=== PATIENT | male | born 1945 | race Caucasian/White ===

== ENCOUNTER 2016-12-25 11:21 | Inpatient (IN) ==
[2016-12-25] MEDS ORDERED: DIPRIVAN 1% 1,000 MG/100 ML BOTTLE ONE (11:26)
[2016-12-25] MEDS ORDERED: NS 2,000 ML ONE (11:30)
[2016-12-25] MEDS: DIPRIVAN 1% 1,000 MG/100 ML BOTTLE IV SCH ×5 (11:30→16:25)
[2016-12-25] MEDS ORDERED: NS 1,000 ML IV ONE ×2 (11:31→12:19)
[2016-12-25 11:49] LABS: MANUAL DIFF NEEDED? NO
[2016-12-25 11:49] LABS: URINE MICRO REVIEW NEEDED? NO; URINE SOURCE CATH
[2016-12-25 11:53] LABS: BASO% 0.9 % (0.0-0.8); EOS# 0.03 X1000 (0.0-0.7); EOS% 0.5 % (0.0-10.0); HEMATOCRIT 39.4 % (42.0-52.0); IMM GRAN# 0.03 X1000 (0.0-0.04); IMM GRAN% 0.5 % (0.0-0.5); LYMPH# 1.44 X1000 (1.2-3.4); LYMPH% 21.7 % (20.5-51.1); MCH 29.5 PG (27-31); MCHC 30.5 g/dL (33-37); MCV 96.8 FL (81-99); MONO# 0.78 X1000 (0.11-0.59); MONO% 11.7 % (1.7-9.3); MPV 9.3 FL (7.4-10.4); NEUT% 64.7 % (42.2-75.2); PLT 289 X1000 (130-400); RBC 4.07 XMIL (4.7-6.1)
[2016-12-25 11:54] LABS: BILIRUBIN URINE NEGATIVE (NEGATIVE); BLOOD URINE NEGATIVE (NEGATIVE); COLOR YELLOW; GLUCOSE URINE NEGATIVE (NEGATIVE); LEUKOCYTES URINE NEGATIVE (NEGATIVE); NITRITE URINE NEGATIVE (NEGATIVE); PROTEIN URINE TRACE mg/dL (NEGATIVE); SP GRAVITY URINE 1.012; TURBIDITY URINE CLEAR (CLEAR); UROBILINOGEN URINE NORMAL (NORMAL)
[2016-12-25 11:56] LABS: UR EPITHELIAL CELLS <10 /HPF (<10); URINE BACTERIA NEGATIVE /HPF; URINE RBC <10 /HPF (<10); URINE WBC <10 /HPF (<10)
--- NOTE | 2016-12-25 12:05 | Diag Imaging Result Doc PS360 ---
EXAM: CHEST-PORTABLE HISTORY: post intubation TECHNIQUE: Portable supine COMPARISON: 06/04/2016 FINDINGS: There is an endotracheal tube with tip located approximately 4 cm above the sasha. There are increased interstitial markings in the upper and mid left lung. These are actually slightly less pronounced than on the prior study. There is pleural thickening on the left. There is a small amount of fibrosis in the right apex. Old injury to the distal right clavicle. The heart is not enlarged. No pleural effusions identified. IMPRESSION: Endotracheal tube in good position. Persistent masslike area in the left upper lobe. Electronically signed by Wyatt Horn 12/25/2016 12:03 PM
[2016-12-25 12:21] LABS: ALLEN TEST YES; BE 3.4 mmoll (-3.0-3.0); BLOOD TYPE ARTERIAL; DRAW SITE R RADIAL; METHB 1.1 % (0.0-1.5); O2(CT) 15.2 mL/dL (15.0-23.0); PO2(98.6) 330 mmHg (60-100); SAMPLE BLOOD; SAO2 99.3 % (95.0-100.0); SRATE 15 BPM; THB 10.6 g/dL (11.5-17.4); TVOL 400 mL
[2016-12-25 12:22] LABS: AGAP 8; ALBUMIN 3.6 g/dL (3.5-5.0); ALKALINE PHOSPHATASE 117 U/L (32-122); AMYLASE 49 U/L (20-200); BUN 13 mg/dL (8-22); CALCIUM 8.5 mg/dL (8.8-10.2); CHLORIDE 97 mmol/L (98-107); COSMO 284; GOT 24 U/L (10-34); GPT 19 U/L (10-44); LIPASE 15 U/L (13-60); POTASSIUM 4.4 mmol/L (3.5-5.1); SODIUM 138 mmol/L (136-145); TCO2 33 mmol/L (25-35); TOTAL BILIRUBIN 0.25 mg/dL (0.20-1.00); TOTAL PROTEIN 6.6 g/dL (6.3-8.3)
[2016-12-25 12:23] LABS: MODALITY VENTILATOR; PCO2(98.6) 102 mmHg (35-45); pH(98.6) 7.14 (7.35-7.45)
[2016-12-25] MEDS ORDERED: CALCIUM CHLORIDE SYRINGE IV ONE (12:27)
[2016-12-25] MEDS ORDERED: SODIUM BICARBONATE 8.4% IV ONE (12:27)
[2016-12-25] MEDS ORDERED: LEVOPHED 8 MG in D5 1/2 NS 250 ML IV SCH (12:30)
[2016-12-25] MEDS: LEVOPHED 8 MG in D5 1/2 NS 250 ML IV SCH ×3 (12:45→14:13)
--- NOTE | 2016-12-25 13:00 | PROVIDER DOCUMENTATION ---
This chart was entered by Jennifer Maxwell Scribe, acting as scribe for Vaughn Tineo MD. HPI-Cardiopulmonary Arrest - General Stated Complaint: unresponsive Time Seen by Provider: 12/25/16 11:21 Source: EMS Allergies/Adverse Reactions: Allergies Allergy/AdvReac Type Severity Reaction Status Date / Time morphine Allergy Intermediate SWELLING Verified 05/30/16 09:53 Home Medications: Home Medication List Medication Instructions Recorded Confirmed Last Taken Type LISINOpril [Prinivil] 20 mg PO DAILY 04/18/16 05/30/16 05/29/16 History Trazodone [Desyrel] 50 mg PO QHS 04/18/16 05/30/16 3 Days Ago History Terazosin HCl 2 mg PO QHS 05/30/16 05/30/16 05/28/16 History Albuterol 2.5MG/Ipratrop 0.5MG 3 ml INH RTQ4H PRN neb 06/03/16 Unknown Rx [Duoneb (A & A)] Carvedilol [Coreg] 6.25 mg PO Q12HR #0 tablet 06/03/16 Unknown Rx Ergocalciferol (Vitamin D2) 50,000 unit PO Q7D #0 capsule 06/03/16 Unknown Rx [Vitamin D] Guaifenesin [Robitussin] 10 ml PO Q4H PRN PRN #0 bottle 06/03/16 Unknown Rx Iron Carbonyl/Ascorbic Acid 1 each PO BID #0 tablet 06/03/16 Unknown Rx [Icar-C] Levofloxacin [Levaquin] 750 mg PO DAILY #7 tablet 06/03/16 Unknown Rx Methylprednisolone [Medrol Dosepak] 4 mg PO DIRECTED #1 package 06/03/16 Unknown Rx Multivitamins/Minerals [Centrum 1 each PO BID #0 tablet 06/03/16 Unknown Rx Silver] Oxycodone/APAP 5 mg/325 mg 1 each PO Q4H PRN PRN #0 tablet 06/03/16 Unknown Rx [Percocet-5] Pantoprazole [Protonix] 40 mg PO DAILY@0700 #30 tablet 06/03/16 Unknown Rx Sucralfate [Carafate Liquid] 1 gm PO Q6H #0 udc 06/03/16 Unknown Rx - History of Present Illness-C/P Arrest Initial Comments: Pt is 71 y/o M presents to the ED via EMS for respiratory distress. EMS states on arrival Pt was unresponsive and a respiratory rate of 4 per minute. EMS states Pt is stage 4 lung cancer. Onset: Reason for Code Blue?: respiratory arrest Witnessed arrest?: No Bystander CPR?: No CPR initiated before doctor arrival?: No Down-time before ACLS? (in minutes, if known): 30 Initial Findings: unresponsive, decreased respirations (4 per minute) Treatment initiated prior to doctor arrival?: Initiated other (respirations given via ambu bag) Similar Symptoms Previously?: No Recently seen or treated by another doctor?: No - Pre-hospital Treatment EMS Initial Findings:: unresponsive, decreased respirations (4 per minute) Pre-hospital Treatment: Initiated other (respirations given via ambu bag) Review of Systems - Adult - REVIEW OF SYSTEMS - ADULT ROS:: unobtainable per condition Constitutional: reports: no symptoms reported Eyes: reports: no symptoms reported Ears, Nose, Mouth & Throat: reports: no symptoms reported Cardiovascular: reports: no symptoms reported Respiratory: reports: other (decreased respirations (4 per min)). denies: cough , shortness of breath, wheezing Gastrointestinal: reports: no symptoms reported Genitourinary: reports: no symptoms reported Musculoskeletal: reports: no symptoms reported Integumentary: reports: no symptoms reported Neurological: reports: no symptoms reported Psychiatric: reports: no symptoms reported Endocrine: reports: no symptoms reported Hematologic/Lymphatic: reports: no symptoms reported Allergic/Immunologic: reports: no symptoms reported All Other Systems: Reviewed and Negative Past History - Adult - PAST MEDICAL HISTORY-ADULT Review of Records: reports: Nursing Assessment Review, Medications Reviewed, Social history reviewed & non-contributory. Major Childhood Illnesses: reports: denies history Cardiovascular: reports: CAD, HTN Respiratory: reports: COPD (emphysema ), cancer (SCC for the last year--has had no treatment for this) Gastrointestinal: reports: denies history Obstetrical/Gynecological: reports: denies history Genitourinary: reports: denies history Musculoskeletal: reports: arthritis Neurological: reports: dementia, Seizures/Epilepsy Endocrine/Immune: reports: denies history Other Conditions: reports: denies history - PRIOR SURGERIES/PROCEDURES Surgical/Procedure History: reports: orthopedic (extremity), back/neck - IMMUNIZATION STATUS Childhood Immunizations: See Nurse Assessment Flu Vaccine: See Nurse Assessment - FAMILY HISTORY Family History: reviewed, not pertinent - SOCIAL HISTORY Smoking: quit less than 1 year, cigarettes Substance Use: denies Living Situation: family Physical Exam-General - PHYSICAL EXAM-ADULT Initial Vital Signs Reviewed: Yes - CONSTITUTIONAL General Appearance: moderate distress, thin, other (unresponsive) - EYES Eyes: PERRL/EOMI, pink conjunctivae - HEAD, EARS, NOSE, MOUTH & THROAT HENMT: normal ENT inspection - NECK Neck: normal inspection - RESPIRATORY Respiratory: chest non-tender, rhonchi (bilateral), decreased rate (4 per minute ) - CARDIOVASCULAR Cardiovascular: no edema, no gallop, no JVD, no murmur, tachycardia - GASTROINTESTINAL (ABDOMEN) Abdominal Exam: normal bowel sounds, soft - LYMPHATIC Lymphatic: no adenopathy - MUSCULOSKELETAL Back Exam: normal inspection Extremity: normal inspection - SKIN Integumentary: normal color, normal turgor, warm/dry - NEUROLOGIC Neurologic: other (unresponsive) - PSYCHIATRIC Psych/Mental Status: other (unresponsive) Progress - PLAN OF CARE/RESULTS Progress/Plan/Lab Results: Vital Signs - 8 hr 12/25/16 11:26 Temperature 97.6 F Pulse Rate 101 H Respiratory Rate 22 Blood Pressure 126/67 O2 Sat by Pulse Oximetry 96 Laboratory Results - last 24 hr 12/25/16 12/25/16 12/25/16 11:14 11:14 11:14 WBC 6.64 RBC 4.07 L Hgb 12.0 L Hct 39.4 L MCV 96.8 MCH 29.5 MCHC 30.5 L RDW Std Deviation 15.5 H Plt Count 289 MPV 9.3 Immature Gran % (Auto) 0.5 Neut % (Auto) 64.7 Lymph % (Auto) 21.7 Sutton % (Auto) 11.7 H Eos % (Auto) 0.5 Baso % (Auto) 0.9 H Immature Gran # (Auto) 0.03 Neut # (Auto) 4.30 Lymph # (Auto) 1.44 Sutton # (Auto) 0.78 H Eos # (Auto) 0.03 Baso # (Auto) 0.06 Specimen Type Sample Site pH pCO2 pO2 HCO3 Base Excess Oxyhemoglobin ABG O2 Sat (Calculated) ABG O2 Saturation ABG Carboxyhemoglobin ABG Methemoglobin Clayton Test A-a O2 Difference Total Hemoglobin Lactate Blood Gas Modality Vent Mode Spontaneous Rate FiO2 % Tidal Volume PEEP Sodium 138 Potassium 4.4 Chloride 97 L Carbon Dioxide 33 Anion Gap 8 BUN 13 Creatinine 0.5 L Estimated GFR/1.73 m2 > 60 BUN/Creatinine Ratio 26 Glucose 241 H Calculated Osmolality 284 Calcium 8.5 L Total Bilirubin 0.25 AST 24 ALT 19 Alkaline Phosphatase 117 Troponin T < 0.010 Total Protein 6.6 Albumin 3.6 Globulin 3.0 Albumin/Globulin Ratio 1.2 Amylase 49 Lipase 15 Plasma Lactate Urine Source Urine Color Urine Turbidity Urine pH Ur Specific Verona Urine Protein Ur Glucose (Stick) Ur Ketones (Stick) Urine Blood Urine Nitrite Urine Bilirubin Urobilinogen Dipstick Urine Leukocytes Urine WBC (Auto) Urine RBC (Auto) U Epithel Cells (Auto) Urine Bacteria (Auto) 12/25/16 12/25/16 12/25/16 11:14 11:20 12:10 WBC RBC Hgb Hct MCV MCH MCHC RDW Std Deviation Plt Count MPV Immature Gran % (Auto) Neut % (Auto) Lymph % (Auto) Sutton % (Auto) Eos % (Auto) Baso % (Auto) Immature Gran # (Auto) Neut # (Auto) Lymph # (Auto) Sutton # (Auto) Eos # (Auto) Baso # (Auto) Specimen Type ARTERIAL Sample Site R RADIAL pH 7.14 L* pCO2 102 H* pO2 330 H HCO3 27.6 H Base Excess 3.4 H Oxyhemoglobin 96.4 ABG O2 Sat (Calculated) 15.2 ABG O2 Saturation 99.3 ABG Carboxyhemoglobin 1.80 ABG Methemoglobin 1.1 Clayton Test YES A-a O2 Difference 113.0 Total Hemoglobin 10.6 L Lactate 0.50 Blood Gas Modality VENTILATOR Vent Mode A/C Spontaneous Rate 15 FiO2 % 80.0 Tidal Volume 400 PEEP 5.0 Sodium Potassium Chloride Carbon Dioxide Anion Gap BUN Creatinine Estimated GFR/1.73 m2 BUN/Creatinine Ratio Glucose Calculated Osmolality Calcium Total Bilirubin AST ALT Alkaline Phosphatase Troponin T Total Protein Albumin Globulin Albumin/Globulin Ratio Amylase Lipase Plasma Lactate 2.1 Urine Source CATH Urine Color YELLOW Urine Turbidity CLEAR Urine pH 6.0 Ur Specific [place] 1.012 Urine Protein TRACE A Ur Glucose (Stick) NEGATIVE Ur Ketones (Stick) NEGATIVE Urine Blood NEGATIVE Urine Nitrite NEGATIVE Urine Bilirubin NEGATIVE Urobilinogen Dipstick NORMAL Urine Leukocytes NEGATIVE Urine WBC (Auto) <10 Urine RBC (Auto) <10 U Epithel Cells (Auto) <10 Urine Bacteria (Auto) NEGATIVE Orders Category Date Time Status CHEST-PORTABLE [RAD] Stat Exams 12/25/16 11:27 Completed ABG [RESP] Routine Lab 12/25/16 12:10 Completed AMYLASE [CHEM] Stat Lab 12/25/16 11:14 Completed BLOOD CULTURE [BLDCUL] Stat Lab 12/25/16 12:10 Received CBC WITH ELECTRONIC DIFF [HEME] Stat Lab 12/25/16 11:14 Completed COMPREHENSIVE METABOLIC PANEL [CHEM] Stat Lab 12/25/16 11:14 Completed LACTATE, PLASMA [CHEM] Stat Lab 12/25/16 11:14 Completed LIPASE [CHEM] Stat Lab 12/25/16 11:14 Completed TROPONIN T Stat Lab 12/25/16 11:14 Completed URINALYSIS [URINALYSIS] Stat Lab 12/25/16 11:20 Completed 0.9% Sodium Chloride Inj [Ns] 1,000 ml Med 12/25/16 11:30 Discontinued .ROUTE As Directed 0.9% Sodium Chloride Inj [Ns] 1,000 ml Med 12/25/16 11:31 Discontinued IV 999 mls/hr 0.9% Sodium Chloride Inj [Ns] 1,000 ml Med 12/25/16 12:19 Active IV 999 mls/hr Calcium Chloride Syringe Med 12/25/16 12:27 Discontinued 1 gm IV NOW ONE Dextrose 5%-0.45% NaCl Inj [D5 1/2 Ns] 250 ml Med 12/25/16 12:30 Active Norepinephrine [Levophed] 8 mg IV As Directed Dextrose 5%-0.45% NaCl Inj [D5 1/2 Ns] 250 ml Med 12/25/16 12:30 Ordered Norepinephrine [Levophed] 8 mg IV As Directed Propofol [Diprivan 1%] Med 12/25/16 11:26 Discontinued 1,000 mg in 100 ml .ROUTE As Directed Propofol [Diprivan 1%] Med 12/25/16 11:48 Active 1,000 mg in 100 ml IV As Directed Sodium Bicarbonate 8.4% Med 12/25/16 12:27 Discontinued 50 meq IV NOW ONE EKG [EKG] Stat Ther 12/25/16 11:27 Ordered Result Diagrams: 12/25/16 11:14 12/25/16 11:14 - XRAY 1 XRAY Study: Chest Impression: See EMR Report (ET tube in place) - CONSULTS/PCP/HOSPITALIST Notification #1 *Consult/PCP/Hospitalist*: Dr Cueto Time Discussed: 12:55 Consult Disposition: Admit Procedures - INTUBATION Time of Intubation: 11:16 Mallampati Class: 4 Intubation Method: orotracheal Equipment: Glidescope Tube Size (cm): 7.5 Pretreated with 100% Oxygen?: Yes Breath Sounds after Intubation: equal ETT Primary Tube Confirmation: Capnometry CO2 Change, Direct Visualization, Chest Rise and Fall, Tube placement verified on XRAY Intubation Complications: no complications Vent Settings: See Respiratory Therapy Notes Departure - Departure Date of Disposition Decision: 12/25/16 Time of Disposition Decision: 12:55 DIAGNOSIS: Respiratory acidosis Respiratory failure Qualifiers: Chronicity: unspecified Respiratory failure complication: hypercapnia Qualified Code(s): J96.92 - Respiratory failure, unspecified with hypercapnia DIAGNOSIS: (Ruled Out): Respiratory failure after trauma Disposition: ADMITTED INPATIENT 09 Certified Medical Emergency: Emergent Condition: Serious Referrals and Follow-Ups: None,PCP [Primary Care Provider] - - Critical Care Note This patient required my direct & personal management of CC.: Yes Total Time (mins): 60 Critical Care Statement: This patient required my direct personal management to treat or rule out processes, the absence of which, could potentiallly result in sudden, clinically significant life or limb threatening deterioration. Comments: A 71 y/o M with stage 3 lung cancer full code presented with respiratory failure , no gag reflex, pulse normal GCS less than 8after intubation, pt was sedated and started on levodrip for BP maintanance, labs shows acidosis will admit to ICU for further evaluation and management This chart was documented by the indicated scribe, (Jennifer Maxwell Scribe) and accurately reflects the services I performed and decisions made by me, Vaughn Tineo MD, as attested by the provider's signature.
[2016-12-25] MEDS ORDERED: VANCOMYCIN IV PER PHARMACY MISC SCH (13:45)
[2016-12-25] MEDS ORDERED: ATROPINE SYRINGE ONE (13:59)
[2016-12-25] MEDS ORDERED: DUONEB (A & A) INH PRN (14:09)
[2016-12-25] MEDS ORDERED: ATROPINE SYRINGE IV ONE (14:09)
[2016-12-25 14:17] LABS: ALLEN TEST YES; BE 6.6 mmoll (-3.0-3.0); BLOOD TYPE ARTERIAL; DRAW SITE R RADIAL; METHB 1.2 % (0.0-1.5); O2(CT) 15.9 mL/dL (15.0-23.0); PO2(98.6) 311 mmHg (60-100); SAMPLE BLOOD; SAO2 99.4 % (95.0-100.0); SRATE 20 BPM; THB 11.1 g/dL (11.5-17.4); TVOL 450 mL; pH(98.6) 7.31 (7.35-7.45)
[2016-12-25 14:22] LABS: MODALITY VENTILATOR; PCO2(98.6) 69 mmHg (35-45)
[2016-12-25 15:07] LABS: HEMOGLOBIN A1C 5.5 % (4.8-6.0)
--- NOTE | 2016-12-25 15:45 | Diag Imaging Result Doc PS360 ---
EXAM: THORAX/ABDOMEN/PELVIS HISTORY: respiratory failure, lung cancer TECHNIQUE: CT chest with contrast. CT abdomen and pelvis with contrast. Dose reduction protocol. COMPARISON: 05/30/2016. FINDINGS: Chest: There is an endotracheal tube in good position. Tiny pleural effusions. The heart is not enlarged. Wedged shaped consolidated area containing multiple calcifications in the upper outer left lung. Interval increase in the size of the mass or adjacent infiltrates compared to the prior exam. There is also fibrosis in the right upper lung. Prominent emphysematous changes. There is bilateral bronchial wall thickening fairly similar to the prior exam. Increased interstitial markings in the lower lungs believed to be fibrosis. No thoracic aortic aneurysm or dissection. Normal opacification of pulmonary arteries. Abdomen and pelvis: The gallbladder is overly distended. No adjacent inflammation or calcified stones. No distinct focal hepatic lesion. There is periportal edema. Spleen is not enlarged. Normal pancreas and adrenal glands. Normal enhancement of the kidneys. There is a nonobstructing right renal stone. No hydronephrosis. Prominent atherosclerosis. No aneurysmal dilatation to the aorta. No bowel obstruction. A Myers catheter has the urinary bladder decompressed. There are surgical clips in the anterior mid abdomen and pelvis. Trace fluid in the abdomen and pelvis. Patient has scoliosis with degenerative spine changes. Interval fracture or development of a destructive lesion in the posterior inferior pubic ramus on the right. IMPRESSION: CHEST: Overall increase in the size of the mass or adjacent infiltrates in the upper left lower. Abdomen and pelvis: Stable CT of the abdomen and pelvis with the exception of a distended gallbladder on the current exam and either a fracture or destructive lesion in the right inferior pubic ramus Electronically signed by Wyatt Horn 12/25/2016 3:42 PM
--- NOTE | 2016-12-25 15:52 | Diag Imaging Result Doc PS360 ---
EXAM: HEAD W/O CONTRAST HISTORY: seizure, ams, intubated TECHNIQUE: Dose reduction protocol. COMPARISON: 05/30/2016 FINDINGS: No parenchymal hemorrhage. No epidural or subdural hematoma. No subarachnoid hemorrhage. No mass identified on this noncontrasted exam. No hydrocephalus. There are chronic microvascular ischemic changes. No sinus opacification although there is mucosal thickening in the frontal, ethmoid, and maxillary sinuses. IMPRESSION: 1.No hemorrhage 2.Chronic microvascular ischemic changes 3.Mucosal thickening in multiple sinuses Electronically signed by Wyatt Horn 12/25/2016 3:49 PM
[2016-12-25] MEDS: DUONEB (A & A) INH SCH (16:01)
[2016-12-25] MEDS: SODIUM CHLORIDE 0.9% INJ SCH (16:36)
[2016-12-25] MEDS: SOLU-MEDROL IV SCH ×2 (16:36→22:33)
[2016-12-25] MEDS: LOVENOX SUBQ SCH (16:36)
[2016-12-25] MEDS: PEPCID IV SCH (16:36)
[2016-12-25] MEDS: NS 1,000 ML IV SCH (16:37)
[2016-12-25] MEDS: ZOSYN 3.375 GM/NS 3.375 GM/50 ML IVPB IV SCH ×2 (16:37→20:06)
[2016-12-25] MEDS: HUMULIN R SUBQ SCH ×2 (16:46→22:25)
--- NOTE | 2016-12-25 16:53 | HISTORY AND PHYSICAL ---
CHIEF COMPLAINT: Altered mental status. HISTORY OF PRESENT ILLNESS: Mr. Dolan is an unfortunate 71-year-old male known to our service, he has a history of left upper lobe lung cancer and is currently followed by Dr. Mehta with Radiation Oncology, and is receiving radiation therapy. Currently patient is intubated and is unable to give any type of history. at the bedside reports that he has not been "feeling well" over the past few days. This morning she witnessed him have what was reported as a seizure-like event. He began shaking and essentially collapsed, at which point 911 was called. The patient was brought to the ER emergently. He was promptly intubated as he was in respiratory failure, breathing 4 times a minute. Initial ABG showed a CO2 of 102, with a pH of 7.14. Chemistry did not show anything acute, CBC was stable. Chest x-ray showed ET tube in good placement with stable left upper lobe mass. The patient's reports he has apparently a history of seizures but is not on any medications and has not been on any for multiple years, his last seizure was reported 2 years ago. During our interview, the patient began to become bradycardic in the 40s and this required atropine. He also shot his blood pressure up to 190 systolic. As such, we are going to order a stat head CT to rule out any increase in intracranial pressure. However the family has requested that he is now a DNR level 2. They do not want any chest compressions or defibrillation. The patient is critically ill with a poor prognosis. He is now going to be admitted to the ICU for further treatment and evaluation. PAST MEDICAL HISTORY: 1. Lung cancer. 2. COPD. 3. Continued nicotine dependence. 4. Questionable seizure disorder. 5. History of TB. 6. Rheumatoid arthritis. 7. Severe protein calorie malnutrition. SURGICAL HISTORY: He has had some type of back surgery as well as stomach surgery. SOCIAL HISTORY: He smokes half a pack to a pack a day of personally rolled cigarettes. He does not drink or use illicit substances. He is and his is at the bedside. REVIEW OF SYSTEMS: Unable to obtain. FAMILY HISTORY: Noncontributory. ALLERGIES: To morphine. HOME MEDICATIONS: Currently being compiled. PHYSICAL EXAMINATION: VITAL SIGNS: Blood pressure is 190/105, heart rate is 52, respiratory rate is 20, O2 saturation 100% on 100% mechanical ventilation. Temperature is 97.6 degrees. GENERAL: This is a frail, chronically ill and disheveled appearing 71-year-old male, lying in hospital bed intubated and sedated. NEUROLOGIC: The patient is sedated on propofol which precludes neurologic examination. HEENT: Head is atraumatic and normocephalic. His pupils are. 1 mm bilaterally, sluggish to light reaction. ET tube is noted. Oral mucosa is dry. Trachea is midline. NECK: There is no cervical lymphadenopathy. CHEST: Coarse throughout with diminished airflow on the left upper lobe. CV: Bradycardic and regular. S1, S2 is noted. There is a 1/6 systolic ejection murmur noted. GI: Soft, nondistended. Bowel sounds are hypoactive. EXTREMITIES: Without edema, clubbing or cyanosis. Pulses palpable but diminished bilaterally. DIAGNOSTIC DATA: Chest x-ray shows ET tube in good position with stable left upper lobe mass. WBC 6.64, hemoglobin 12, hematocrit 39.4, platelet count 289,000. Repeat ABG on 80% mechanical ventilation; pH 7.31, CO2 69, O2 311, bicarb 30.1, lactic acid 0.4. Chemistry: Sodium 138, potassium 4.4, chloride 97, CO2 33, anion gap 8, BUN 13, creatinine 0.5, glucose 241, calcium 8.5. LFTs in normal limits. Troponin negative. Lactate 2.1. Albumin 3.6. WBC 6.64, hemoglobin 12, hematocrit 39.4, platelet count 289,000. UA is negative. ASSESSMENT/PLAN: 1. Acute on chronic hypercapnic respiratory failure: Patient has been put on mechanical ventilation. We will go ahead and put him on broad-spectrum antibiotics, breathing treatments and aggressive pulmonary toilet. We will consult Pulmonary and Critical Care. Check daily ABGs and chest x-rays. 2. Questionable seizure/altered mental status: Could certainly be secondary to refined hypercapnia, but would not rule out intracranial event such as seizure or stroke. We are going to check a head CT now and monitor. 3. Transient bradycardia and hypertension: Unclear of the significance, certainly would raise the suspicion of elevated intracranial pressure (Benny's response). We are going to check a head CT now, also trend his cardiac enzymes, make sure we have all of his electrolytes corrected. We are also going to check a thorax, abdomen and pelvis CT to rule out any other catastrophic events. 4. Lung cancer: He is currently receiving radiation treatments by Dr. Mehta. We are going to check a CT to evaluate his known cancer and scan the rest of his body for any metastasis. 5. Severe protein calorie malnutrition: Aware. Once his initial resuscitation is complete we might need to switch him over to a dextrose containing solution or put him on Clinimix. 6. Intensive care unit prophylaxis with Lovenox and famotidine. CRITICAL CARE TIME WITH THE PATIENT: Forty-five minutes. Dictated by SAJAN Gleason for Meredith Quesada MD cc: SAJAN Gleason MD Traci C. McCormick, MD
[2016-12-25] MEDS ORDERED: VANCOMYCIN 1,400 MG in NS 250 ML IV ONE (18:00)
[2016-12-26] MEDS: NS 1,000 ML IV SCH ×3 (02:29→23:16)
[2016-12-26] MEDS: ZOSYN 3.375 GM/NS 3.375 GM/50 ML IVPB IV SCH ×4 (02:35→20:00)
[2016-12-26] MEDS: PEPCID IV SCH ×2 (02:35→15:29)
[2016-12-26] MEDS: DUONEB (A & A) INH SCH ×4 (03:43→21:33)
[2016-12-26 05:58] LABS: AGAP 11; BUN 12 mg/dL (8-22); CALCIUM 8.5 mg/dL (8.8-10.2); CHLORIDE 103 mmol/L (98-107); COSMO 287; POTASSIUM 3.8 mmol/L (3.5-5.1); SODIUM 142 mmol/L (136-145); TCO2 28 mmol/L (25-35)
[2016-12-26 06:00] LABS: IRON SATURATION 12 %; TIBC 229 ug/dL; TOTAL IRON 27 ug/dL (53-167); UNBOUND IRON 202 ug/dL (112-346)
[2016-12-26 06:02] LABS: ALLEN TEST YES; BE 5.7 mmoll (-3.0-3.0); BLOOD TYPE ARTERIAL; DRAW SITE R RADIAL; METHB 1.6 % (0.0-1.5); O2(CT) 15.9 mL/dL (15.0-23.0); PO2(98.6) 112 mmHg (60-100); SAMPLE BLOOD; SAO2 97.7 % (95.0-100.0); SRATE 20 BPM; THB 11.7 g/dL (11.5-17.4); TVOL 450 mL; pH(98.6) 7.37 (7.35-7.45)
[2016-12-26 06:04] LABS: MODALITY VENTILATOR; PCO2(98.6) 56 mmHg (35-45)
[2016-12-26 06:23] LABS: HEMATOCRIT 32.5 % (42.0-52.0); MCHC 30.8 g/dL (33-37); MCV 94.2 FL (81-99); MPV 9.1 FL (7.4-10.4); RBC 3.45 XMIL (4.7-6.1)
[2016-12-26] MEDS: SOLU-MEDROL IV SCH ×3 (06:47→23:20)
[2016-12-26] MEDS: HUMULIN R SUBQ SCH ×4 (06:48→20:35)
--- NOTE | 2016-12-26 06:57 | Diag Imaging Result Doc PS360 ---
EXAM: CHEST-PORTABLE HISTORY: Ventilator Patient TECHNIQUE: Portable COMPARISON: 12/25/2016 FINDINGS: The endotracheal tube remains in good position. Upper and mid left lung opacity persists. Heart is not enlarged. The vessels are not distended. No pleural effusions identified. Long-standing arthritic changes to each shoulder. IMPRESSION: Stable chest. Electronically signed by Wyatt Horn 12/26/2016 6:55 AM
[2016-12-26] MEDS: DIPRIVAN 1% 1,000 MG/100 ML BOTTLE IV SCH ×4 (07:26→20:37)
[2016-12-26] MEDS: SODIUM CHLORIDE 0.9% INJ SCH (15:28)
[2016-12-26] MEDS: LOVENOX SUBQ SCH (15:29)
--- NOTE | 2016-12-26 15:52 | Diag Imaging Result Doc PS360 ---
EXAM: CHEST/ABD TUBE PLACEMENT HISTORY: NG placement TECHNIQUE: Portable upright AP chest abdomen COMPARISON: Compared to study performed earlier in the day FINDINGS: Interval placement of a nasogastric tube. This overlies the esophagus and stomach. No other interval change. IMPRESSION: Nasogastric tube enters the stomach. Electronically signed by Wyatt Horn 12/26/2016 3:50 PM
[2016-12-26] MEDS: VANCOMYCIN 1 GM/NS 1 GM/250 ML IVPB IV SCH (17:54)
--- NOTE | 2016-12-26 19:18 | CONSULTATION ---
DATE OF CONSULTATION: 12/26/2016 Thank you very much for asking me to see this very unfortunate 71-year-old male white. DIAGNOSES: 1. Left upper lobe bronchogenic carcinoma. 2. _Lung cancer cachexia. 3. Respiratory failure. 4. Severe protein calorie malnutrition. 5. Rheumatoid arthritis. 6. Continued cigarette abuse. RECOMMENDATIONS: He will be given broad-spectrum antibiotics, bronchodilators, mechanical ventilation, volume resuscitation, DVT prophylaxis and will follow closely along with you. I think his son is stated to be [place] and which he is to limit care at that point. He supposedly is to arrive soon. HISTORY: This very unfortunate 71-year-old male white has a known history of bronchogenic carcinoma. He has been receiving radiation treatment. He has developed progressive weakness, shortness of breath, in the last 2 days developed some wheezing and presented to the emergency room with some loss of consciousness event, respiratory failure. He was intubated and subsequently placed on mechanical ventilation with volume resuscitation. Placed in the ICU and I am consulted to assist in his care. PAST MEDICAL HISTORY: Is positive for COPD, cigarettes use, lung cancer, history of significant recent malnutrition severe present on admission as well as rheumatoid arthritis. REVIEW OF SYSTEMS: Except for the features mentioned above are negative for weight loss, night sweats, weakness or anorexia. No ENT symptoms of odynophagia, dysphagia, epistaxis, painful swallowing. No eye symptoms of blindness, blurring or diplopia. No other cardiac or pulmonary symptoms other than mentioned, no nausea, vomiting, constipation, diarrhea. No hematuria, polyuria, nocturia, dysuria, no joint or muscle pain, stiffness, swelling, no skin rash, itch, bruises, no seizures, loss of consciousness or paralysis. Except for the features mentioned above all other symptoms on the review of systems negative. SOCIALLY: Lives at home with his and is requiring considerable amount of ambulatory and personal care support. He continues to smoke. FAMILY HISTORY: Noncontributory. PHYSICAL EXAM: Vital signs: This kind, elderly man shows a blood pressure of 106/67 with a pulse 69, respiration 20 97.4. HEENT: Reveals no thyromegaly or adenopathy. Pupils are equal and reactive. Extraocular muscles are intact. Neck: Supple. No bruits. No JVD. Lungs: Reveals bilateral equal breath sounds with some prolongation expiratory phase and forced expiratory wheezes. There are symmetrical mechanically generated breath sounds. Cardiac: Reveals a regular rhythm without an appreciable murmur. Abdomen: Soft, scaphoid and nontender. Extremities: Reveal no evidence of cyanosis. Neurologically: Is sedated but is reportedly moved all 4. DATA: The chest radiograph shows left upper lobe atelectasis, ET tube in position. The white count is 4100 with hemoglobin 10.0, hematocrit 32.5, platelets of 212,000. Sodium is 142, potassium 3.8, chloride 103, CO2 28, BUN 12, creatinine 0.4, glucose 169. The ABG shows a 7.37 pH with 56 CO2 and 112 O2 and this blood gas is on a 450 tidal volume, 5 of PEEP, 40% O2, 20 rate on assist-control mechanical ventilation. [facility]
[2016-12-27] MEDS: ZOSYN 3.375 GM/NS 3.375 GM/50 ML IVPB IV SCH ×4 (02:00→20:14)
[2016-12-27] MEDS: DUONEB (A & A) INH SCH ×4 (03:24→21:09)
[2016-12-27 04:43] LABS: ALLEN TEST YES; BE 5.2 mmoll (-3.0-3.0); BLOOD TYPE ARTERIAL; DRAW SITE R RADIAL; METHB 1.1 % (0.0-1.5); O2(CT) 15.1 mL/dL (15.0-23.0); PCO2(98.6) 47 mmHg (35-45); PO2(98.6) 149 mmHg (60-100); SAMPLE BLOOD; SAO2 98.8 % (95.0-100.0); SRATE 20 BPM; THB 10.9 g/dL (11.5-17.4); TVOL 450 mL; pH(98.6) 7.42 (7.35-7.45)
[2016-12-27 04:44] LABS: MODALITY VENTILATOR
--- NOTE | 2016-12-27 04:58 | PROGRESS NOTE ---
DATE: 12/26/2016 SUBJECTIVE: The patient remains intubated and sedated on the ventilator. No acute events noted overnight. OBJECTIVE: Vital Signs: Temperature 97 degrees, blood pressure 106/67, heart rate 69, respirations 20, O2 saturation 98% on mechanical ventilator. General: This is an elderly male lying in bed sedated on the ventilator. Head: Normocephalic. Atraumatic. Heart: S1, S2 normal. Regular rate and rhythm. Lungs: Equal air entry bilaterally, no crackles, no rales. Abdomen: Positive bowel sounds, soft, nontender, nondistended. Extremities: No edema. No cyanosis. Neuro: Patient sedated. LAB: ABG pH 7.3, pCO2 56, PO2 112, bicarb 29. White blood cell count 4.1, hemoglobin 10, hematocrit 32, platelets 214,000. Sodium 142, potassium 3.8, chloride 103, CO2 28, BUN 12, creatinine 0.4, glucose 169, calcium 8.5, iron 27. ASSESSMENT/PLAN: 1. Acute on chronic hypercapnic respiratory failure. Continue with ventilatory support, IV steroids, IV antibiotics and bronchodilator therapy. Pulmonary is following. 2. Lung cancer. Aware. The patient is currently receiving radiation therapy. 3. Anemia. Will continue to monitor the patient's hemoglobin and hematocrit and transfuse p.r.n. 4. Steroid-induced leukocytosis. 5. Steroid-induced hyperglycemia. The patient is on high dose steroid therapy. Will start insulin sliding scale. 6. Gastrointestinal prophylaxis. Continue on IV Pepcid. 7. Deep vein thrombosis prophylaxis. Continue on Lovenox. 8. The patient is currently a do not resuscitate level 2. cc: Meredith Quesada MD
[2016-12-27 05:09] LABS: HEMATOCRIT 33.9 % (42.0-52.0); HEMOGLOBIN 10.7 g/dL (14.0-18.0); MCH 29.8 PG (27-31); MCHC 31.6 g/dL (33-37); MCV 94.4 FL (81-99); MPV 9.6 FL (7.4-10.4); RBC 3.59 XMIL (4.7-6.1)
[2016-12-27] MEDS: PEPCID IV SCH ×2 (05:13→14:17)
[2016-12-27 05:31] LABS: AGAP 9; BUN 17 mg/dL (8-22); CALCIUM 8.7 mg/dL (8.8-10.2); CHLORIDE 102 mmol/L (98-107); COSMO 285; POTASSIUM 4.1 mmol/L (3.5-5.1); SODIUM 140 mmol/L (136-145); TCO2 29 mmol/L (25-35)
[2016-12-27] MEDS: SOLU-MEDROL IV SCH ×3 (06:36→23:03)
[2016-12-27] MEDS: NS 1,000 ML IV SCH (06:36)
[2016-12-27] MEDS: HUMULIN R SUBQ SCH ×4 (07:08→20:21)
--- NOTE | 2016-12-27 07:09 | EKG Report ---
Test Performed on : 12/25/2016 12:48:46 PM Test Reason : Cp arrest Blood Pressure : / mmHG Vent. Rate : 060 BPM Atrial Rate : 060 BPM P-R Int : 200 ms QRS Dur : 130 ms QT Int : 446 ms P-R-T Axes : 088 087 081 degrees QTc Int : 446 ms Normal sinus rhythm. Right bundle branch block Abnormal ECG When compared with ECG of 31-MAY-2016 08:56, Vent. rate has decreased BY 31 BPM Nonspecific T wave abnormality no longer evident in Inferior leads T wave amplitude has increased in Lateral leads Unconfirmed Result
--- NOTE | 2016-12-27 07:19 | Diag Imaging Result Doc PS360 ---
EXAM: CHEST-1 VIEW HISTORY: resp failure TECHNIQUE: Portable COMPARISON: 12/26/2016 FINDINGS: The endotracheal tube is in good position and unchanged. Nasogastric tube overlies the esophagus and stomach. Dense infiltrates in the upper and mid left lung remain and are unchanged. The right lung is clear. Heart is not enlarged. No pleural effusions identified. IMPRESSION: Stable chest. Electronically signed by Wyatt Horn 12/27/2016 7:17 AM
[2016-12-27] MEDS: DIPRIVAN 1% 1,000 MG/100 ML BOTTLE IV SCH (08:33)
[2016-12-27 11:23] LABS: UR AMPHETAMINES QUAL NONE DETECTED (NONE DETECT); UR BARBITUATES QUAL NONE DETECTED (NONE DETECT); UR BENZODIAZEPIN QUAL NONE DETECTED (NONE DETECT); UR CANNABINOIDS QUAL NONE DETECTED (NONE DETECT); UR COCAINE QUAL NONE DETECTED (NONE DETECT); UR METHADONE QUAL NONE DETECTED (NONE DETECT); UR OPIATES QUAL NONE DETECTED (NONE DETECT); UR OXYCODONE QUAL PRESUMPTIVE POSITIVE (NONE DETECT); UR PCP QUAL NONE DETECTED (NONE DETECT)
[2016-12-27 12:44] LABS: ALLEN TEST YES; BE 5.1 mmoll (-3.0-3.0); BLOOD TYPE ARTERIAL; DRAW SITE R RADIAL; METHB 1.3 % (0.0-1.5); O2(CT) 14.4 mL/dL (15.0-23.0); PCO2(98.6) 44 mmHg (35-45); PO2(98.6) 124 mmHg (60-100); SAMPLE BLOOD; SAO2 99.9 % (95.0-100.0); THB 10.4 g/dL (11.5-17.4); pH(98.6) 7.44 (7.35-7.45)
[2016-12-27 12:45] LABS: MODALITY VENTILATOR
[2016-12-27] MEDS ORDERED: PERCOCET-5 PO PRN (13:52)
[2016-12-27] MEDS: PERCOCET-5 NG PRN ×2 (14:16→20:21)
[2016-12-27] MEDS: SODIUM CHLORIDE 0.9% INJ SCH (14:17)
[2016-12-27] MEDS: LOVENOX SUBQ SCH (14:17)
[2016-12-27] MEDS: VANCOMYCIN 1 GM/NS 1 GM/250 ML IVPB IV SCH (17:39)
[2016-12-28] MEDS: PERCOCET-5 NG PRN ×4 (01:59→21:20)
[2016-12-28] MEDS: PEPCID IV SCH ×2 (03:24→14:51)
[2016-12-28] MEDS: ZOSYN 3.375 GM/NS 3.375 GM/50 ML IVPB IV SCH ×4 (03:24→21:53)
--- NOTE | 2016-12-28 03:48 | PROGRESS NOTE ---
DATE: 12/27/2016 SUBJECTIVE: The patient currently is without complaint. No acute events overnight OBJECTIVE: Temp: 98.7 Heart rate 58. Blood pressure 118/60 Head is normocephalic and atraumatic. Heart: S1 and S2 normal. Regular rate and rhythm. Lungs: Equal air entry bilaterally. Mild rhonchi. Abdomen: Positive bowel sounds. Soft, nondistended and nontender. Extremities: No edema, no cyanosis, no calf tenderness. Neurologic: The patient is currently off the ventilator, but he is able to move all 4 extremities. DIAGNOSTIC DATA: White blood cell count is 7.88. Sodium 140, potassium 4.1, magnesium 2. ASSESSMENT AND PLAN: 1. Acute on chronic hypercapnic respiratory failure. Management as per the heddler tier. 2. Stage III non-small cell lung carcinoma. The patient has undergone radiation therapy. He is followed by Dr. Murphy. The patient will likely need to follow up with Dr. Murphy as an outpatient upon discharge to discuss further treatment. 3. GI prophylaxis. Continue on Pepcid. 4. VTE prophylaxis. Continue on Lovenox. The patient's son was updated on the patient's condition. cc: Meredith Quesada MD [facility]
[2016-12-28] MEDS: DUONEB (A & A) INH SCH ×4 (03:52→22:30)
[2016-12-28 04:42] LABS: ALLEN TEST YES; BE 5.7 mmoll (-3.0-3.0); BLOOD TYPE ARTERIAL; DRAW SITE R RADIAL; METHB 1.5 % (0.0-1.5); PCO2(98.6) 45 mmHg (35-45); PO2(98.6) 91 mmHg (60-100); SAMPLE BLOOD; SAO2 97.7 % (95.0-100.0); THB 10.4 g/dL (11.5-17.4); pH(98.6) 7.44 (7.35-7.45)
[2016-12-28 04:43] LABS: MODALITY CANNULA
[2016-12-28 04:56] LABS: HEMATOCRIT 32.5 % (42.0-52.0); MCH 28.6 PG (27-31); MCHC 30.8 g/dL (33-37); MCV 92.9 FL (81-99); MPV 9.4 FL (7.4-10.4); RBC 3.5 XMIL (4.7-6.1)
[2016-12-28 05:08] LABS: AGAP 10; BUN 15 mg/dL (8-22); CALCIUM 8.5 mg/dL (8.8-10.2); CHLORIDE 101 mmol/L (98-107); COSMO 281; POTASSIUM 4.1 mmol/L (3.5-5.1); SODIUM 139 mmol/L (136-145); TCO2 28 mmol/L (25-35)
[2016-12-28] MEDS: SOLU-MEDROL IV SCH ×2 (05:56→14:50)
[2016-12-28] MEDS: HUMULIN R SUBQ SCH ×4 (06:37→21:22)
[2016-12-28] MEDS ORDERED: LASIX IV ONE (09:03)
[2016-12-28] MEDS: SODIUM CHLORIDE 0.9% INJ SCH (14:50)
[2016-12-28] MEDS: LOVENOX SUBQ SCH (14:50)
--- NOTE | 2016-12-28 18:54 | PROGRESS NOTE ---
DATE: 12/28/2016 SUBJECTIVE: The patient is awake and alert. He has no complaints. He states that he is ready to work with physical therapy. OBJECTIVE: Vital Signs: Temperature 98.9 degrees, blood pressure 143/79, heart rate 74, respirations 18, O2 saturations 96% on 2 L nasal cannula. General: This is an elderly male, lying in bed, in no acute distress. Head: Normocephalic, atraumatic. Heart: S1, S2. Normal. Regular rate and rhythm. Lungs: Clear to auscultation. No crackles. No rales. Abdomen: Positive bowel sounds. Soft, nontender, nondistended. Extremities: No edema. No cyanosis. Neurologic: The patient is alert and oriented x3. LABORATORY: White blood cell count 6.3, hemoglobin 10, hematocrit 32, platelets 211,000. Sodium 139, potassium 4.1, chloride 101, CO2 28, BUN 15, creatinine 0.5, glucose 140. ASSESSMENT AND PLAN: 1. Acute on chronic hypercapnic respiratory failure status post extubation. The patient is doing well postextubation. We will continue with supplemental oxygen. 2. Acute chronic obstructive pulmonary disease exacerbation. We will start to wean down the patient's IV steroid. Continue with bronchodilator therapy and supplemental oxygen. 3. Stage III [id number] lung carcinoma. Aware. The patient will follow up with Dr. Murphy upon discharge from the hospital. 4. Hypertension. Controlled. 5. Deep vein thrombosis prophylaxis. Continue on Lovenox. 6. We will consult physical therapy. cc: Meredith Quesada MD [facility]
[2016-12-28] MEDS: VANCOMYCIN 1 GM/NS 1 GM/250 ML IVPB IV SCH (18:56)
[2016-12-29] MEDS: PEPCID IV SCH ×2 (02:38→15:33)
[2016-12-29] MEDS: ZOSYN 3.375 GM/NS 3.375 GM/50 ML IVPB IV SCH ×4 (02:38→21:00)
[2016-12-29] MEDS: SODIUM CHLORIDE 0.9% INJ SCH (02:39)
[2016-12-29] MEDS: PERCOCET-5 NG PRN ×3 (03:23→15:19)
[2016-12-29] MEDS: SOLU-MEDROL IV SCH ×2 (06:45→18:33)
[2016-12-29] MEDS: HUMULIN R SUBQ SCH ×4 (06:47→21:05)
[2016-12-29 06:58] LABS: HEMOGLOBIN 10.3 g/dL (14.0-18.0); MCH 29.8 PG (27-31); MCHC 31.2 g/dL (33-37); MCV 95.4 FL (81-99); MPV 9.4 FL (7.4-10.4); RBC 3.46 XMIL (4.7-6.1)
--- NOTE | 2016-12-29 07:19 | Diag Imaging Result Doc PS360 ---
EXAM: CHEST-PORTABLE INDICATION: abnormal exam TECHNIQUE: One view COMPARISON: 12/27/2016 FINDINGS: There has been interval extubation and removal of the NG tube. The known left apical lung mass is again noted. No new consolidation is appreciated cardiac silhouette is stable. IMPRESSION: Interval extubation and removal of the NG tube but essentially stable, otherwise. Electronically signed by Herber Weber 12/29/2016 7:17 AM
[2016-12-29 07:20] LABS: AGAP 8; BUN 14 mg/dL (8-22); CALCIUM 8.2 mg/dL (8.8-10.2); CHLORIDE 97 mmol/L (98-107); COSMO 283; MAGNESIUM 1.9 mg/dL (1.5-2.7); POTASSIUM 3.5 mmol/L (3.5-5.1); SODIUM 142 mmol/L (136-145); TCO2 37 mmol/L (25-35)
[2016-12-29] MEDS: DUONEB (A & A) INH SCH ×3 (08:11→20:09)
[2016-12-29] MEDS: COREG PO SCH ×2 (12:27→21:05)
[2016-12-29] MEDS: PRINIVIL PO SCH (12:27)
--- NOTE | 2016-12-29 14:06 | PROGRESS NOTE ---
DATE: 12/29/2016 SUBJECTIVE: The patient is resting comfortably in bed. He has no complaints. He states that he walked with Physical Therapy in the hallway yesterday. OBJECTIVE: Vital Signs: Temperature 97 degrees, blood pressure 149/90, heart rate 82, respirations 20, and O2 saturation is 96% on 2L nasal cannula. General: This is a chronically ill-appearing, elderly male, lying in bed in no acute distress. Head: Normocephalic, atraumatic. Heart: S1 and S2 normal. Regular rate and rhythm. Lungs: Equal air entry bilaterally. No crackles. No rales. Abdomen: Positive bowel sounds. Soft, nontender, and nondistended. Extremities: No edema. No cyanosis. No calf tenderness. Neurologic: The patient is alert and oriented x3. LABORATORY: White blood cell count 5.8, hemoglobin 10, hematocrit 33, and platelets 186,000. Sodium 142, potassium 3.5, chloride 97, CO2 of 37, BUN 14, creatinine 0.4, glucose 91, magnesium 1.9, calcium 8.2. ASSESSMENT AND PLAN: 1. Acute on chronic hypercapnic respiratory failure, status post extubation. Stable. The patient is doing well on nasal cannula. Continue with bronchodilator therapy and steroids. 2. Acute chronic obstructive pulmonary disease exacerbation. Improved. Continue on steroids and bronchodilator therapy. The patient will likely require home oxygen. 3. Stage III [id number] lung carcinoma. Aware. The patient will follow up with Dr. Murphy to discuss treatment options upon discharge. 4. Hypertension. We will restart the patient's lisinopril and Coreg. 5. Deep vein thrombosis prophylaxis. Continue on Lovenox. 6. Continue with physical therapy. 7. Disposition: The patient has a bed at [facility], once cleared for discharge. cc: Meredith Quesada MD
[2016-12-29] MEDS: LOVENOX SUBQ SCH (15:33)
[2016-12-29] MEDS: VANCOMYCIN 1,500 MG in NS 250 ML IV SCH (16:09)
[2016-12-29] MEDS: PERCOCET-10 PO PRN ×2 (17:29→23:36)
[2016-12-30] MEDS: ZOSYN 3.375 GM/NS 3.375 GM/50 ML IVPB IV SCH ×3 (01:40→14:28)
[2016-12-30] MEDS: PEPCID IV SCH (01:41)
[2016-12-30] MEDS: SODIUM CHLORIDE 0.9% INJ SCH (01:41)
[2016-12-30] MEDS: DUONEB (A & A) INH SCH (03:41)
[2016-12-30] MEDS: PERCOCET-10 PO PRN ×3 (03:59→12:09)
[2016-12-30] MEDS: SOLU-MEDROL IV SCH (06:08)
[2016-12-30] MEDS: HUMULIN R SUBQ SCH ×2 (06:27→12:13)
[2016-12-30] MEDS: COREG PO SCH (08:05)
[2016-12-30] MEDS: PRINIVIL PO SCH (08:05)
[2016-12-30 08:57] VITALS: BP 142/75
[2016-12-30] MEDS: VANCOMYCIN 1,500 MG in NS 250 ML IV SCH (09:39)
[2016-12-30] MEDS: LOVENOX SUBQ SCH (14:28)
[2016-12-30] MEDS ORDERED: PEPCID PO SCH (21:00)
--- NOTE | 2016-12-31 14:07 | DISCHARGE SUMMARY ---
ADMISSION DATE: 12/25/2016 DISCHARGE DATE: 12/30/2016 CONSULTATIONS: Dr. Solitario Glover with Pulmonology. PERTINENT PROCEDURES: 1. Head CT showed no hemorrhage, chronic microvascular ischemic changes, mucosal thickening in multiple sinuses. 2. Chest, abdomen, and pelvis CT showed overall increased size of the mass with adjacent infiltrates in the left upper lobe. Abdomen and pelvis: Stable CT of the abdomen and pelvis with the exception of a distended gallbladder on the current exam and either a fracture or a destructive lesion of the right inferior pubic ramus. 3. Chest x-ray showed status post endotracheal tube that showed endotracheal tube in good position, DISCHARGE DIAGNOSES: 1. Acute on chronic hypercapnic respiratory failure status post extubation. Stable. The patient will continue on supplemental oxygen at home as well as his bronchodilator therapy and oral steroids. 2. Chronic obstructive pulmonary disease exacerbation. Improved. Continue on steroids and bronchodilator therapy as well as aggressive pulmonary toilet and supplemental oxygen at home. The patient has refused rehabilitation. He states that he has lung cancer and he would like to go home and spend time with his family. 3. Stage III [id number] lung cancer. Aware. Patient is going to follow up with Dr. Murphy to discuss his treatment options. 4. Hypertension. The patient will continue on his lisinopril and Coreg. HOSPITAL COURSE: Briefly, Mr. Dolan is a 71-year-old gentleman known to our service for history of left upper lobe cancer, followed by Dr. Mehta with Radiation Oncology and is receiving radiation therapy. Currently, he was intubated and was unable to give any type of history at the time of his admission. He did have family at the bedside who stated that he had not been feeling well over the past few days. Per their report, they had witnessed what was reported as seizure- like event where he began shaking and essentially collapsed. They called 911 and he was brought to the ED emergently. He was promptly intubated and was in respiratory failure, breathing 4 times a minute. Initial ABG showed a CO2 of 102, a pH of 7.14. Chemistry did not show anything acute. CBC was stable. Chest x-ray showed ET tube in good position, stable left upper lobe mass. During the initial interview, the patient became bradycardic and required some atropine. His blood pressure at that time shot up to the 190s systolically. They did a CT to rule out any increase in intracranial pressure. The family made the patient a DNR level 2. They did not want any chest compressions or defibrillation. The patient is critically ill with a poor prognosis. He was admitted to the ICU with acute on chronic hypercapnic respiratory failure. He was continued on mechanical ventilation with a Pulmonary consult. He was started on broad-spectrum antibiotics. His head CT did not show anything acute. He was also started on IV steroids as well as sedation while he remained on ventilatory support. Slowly, the patient did improve. He was successfully extubated. He remained on supplemental O2 with nasal cannula. He was able to move out of the ICU to a regular room. Physical Therapy was consulted to work with the patient as well as [employer] for the patient to go to rehab. He was accepted to [facility]. However, on the day that he was supposed to be discharged. The patient stated that he did not want to go to rehab, that he has cancer and he wants to spend time with his family, so he will go home with home health and his supplemental O2. He also refused physical therapy. VITAL SIGNS AT TIME OF DISCHARGE: Temperature is 98.1 degrees, heart rate 83, respirations 20, blood pressure 142/75, and O2 is 94% on 2L nasal cannula. DISCHARGE DIET: Regular. DISCHARGE MEDICATIONS: 1. Benzonatate 100 p.o. q.8 hours p.r.n. 2. Coreg 6.25 mg p.o. q.12 hours. 3. Prinivil 20 mg p.o. daily. 4. Percocet 10 one each p.o. q.4 hours p.r.n. 5. Prednisone 10 mg p.o. daily. FOLLOWUP: Mr. Dolan in being discharged home with home health and home O2. He will follow up with his primary care doctor in 1 week as well as his oncologist about resuming his treatments. He can return to the ED for any worsening of symptoms. DISCHARGE TIME: Thirty minutes. Dictated by SAJAN Dennis for Riccardo Jansen MD cc: Riccardo Jansen MD
== END 2016-12-30 15:20 ==
LOC: ED 11:21 → ICU 14:21 → SUATTDRO 14:21 → 3N 12-28 18:30
PROVIDERS: ATTEND Internal Medicine